=== PATIENT | female | born 1995 | race Caucasian/White ===

== ENCOUNTER 2019-06-19 22:18 | Emergency (ER) | payer OTHER, BC, MEDICAID ==
[2019-06-19 22:50] LABS: ANION GAP 15.5; CHLORIDE,CL 105 mmol/L (101-111); SODIUM,NA 141 mmol/L (135-145)
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
== END 2019-06-19 23:06 ==
LOC: DL.ED 22:18
DX: S72.352A Displaced comminuted fracture of shaft of left femur, initial encounter for closed fracture (principal); S01.21XA Laceration without foreign body of nose, initial encounter; S00.81XA Abrasion of other part of head, initial encounter; Z88.1 Allergy status to other antibiotic agents; Z79.899 Other long term (current) drug therapy; V49.49XA Driver injured in collision with other motor vehicles in traffic accident, initial encounter; Y92.410 Unspecified street and highway as the place of occurrence of the external cause
CPT/HCPCS: 36415; 71045; 72170; 73551; 80053; 85025; 85610; 85730; 86850; 86900; 86901; 99285; G0390; G0480

== ENCOUNTER 2021-05-02 15:51 | Emergency (ER) | payer BC ==
[2021-05-02 16:09] VITALS: BP 142/95; PULSE 81
[2021-05-02] MEDS ORDERED: methylPREDNISolone Sodium Succinate 125 MG/2 ML SDV IM ONE (16:15)
[2021-05-02] MEDS ORDERED: diphenhydrAMINE 50 MG Cap PO ONE (16:15)
[2021-05-02] MEDS ORDERED: Famotidine 20 MG Tab PO ONE (16:15)
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
== END 2021-05-02 17:46 | disposition home or self-care (01) ==
LOC: DL.ED 15:51
DX: T78.40XA Allergy, unspecified, initial encounter (principal); J45.909 Unspecified asthma, uncomplicated; Z88.0 Allergy status to penicillin
CPT/HCPCS: 96372; 99282; A9270; J2930; Q0163; 99283

== ENCOUNTER 2021-09-29 17:28 | Emergency (ER) | payer BC ==
[2021-09-29 17:52] VITALS: BP 112/78; PULSE 103
[2021-09-29 18:22] LABS: CORONAVIRUS COVID-19 NAA NEGATIVE (NEGATIVE)
--- NOTE | 2021-09-29 18:33 | EDM.PDOC ---
ED HPI GENERAL MEDICAL PROBLEM - General Chief Complaint: ENT Problem Stated Complaint: STREP THROAT, SORE THROAT, EARS, BODY ACHE Time Seen by Provider: 09/29/21 18:20 Source of Information: Reports: Patient History Limitations: Reports: No Limitations - History of Present Illness INITIAL COMMENTS - FREE TEXT/NARRATIVE: This 26 yo female reports to the ED with a sore throat, chills and body aches. The patient reports her symptoms started this morning and have been getting worse throughout the day. Onset: Today Duration: Constant, Getting Worse Location: Reports: Generalized Quality: Reports: Other Severity: Moderate Improves with: Reports: None Worsens with: Reports: None Context: Reports: Other Associated Symptoms: Reports: Fever/Chills, Other - Related Data Allergies Allergy/AdvReac Type Severity Reaction Status Date / Time amoxicillin [Amoxicillin] Allergy Rash Verified 09/29/21 17:50 Home Meds: Home Meds Citalopram [Citalopram HBr] 40 mg PO DAILY 05/02/21 [History] Clindamycin HCl 150 mg PO BID 05/02/21 [History] oxyCODONE 5 mg PO DAILY PRN 05/02/21 [History] Past Medical History - Past Health History Medical/Surgical History: Denies Medical/Surgical History Cardiovascular History: Reports: None Respiratory History: Reports: Asthma Gastrointestinal History: Reports: None Genitourinary History: Reports: None 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: Musculoskeletal History: Reports: None Neurological History: Reports: None Psychiatric History: Reports: ADHD, Anxiety, Depression Hematologic History: Reports: None Immunologic History: Reports: None Oncologic (Cancer) History: Reports: None Dermatologic History: Reports: None - Infectious Disease History Infectious Disease History: Reports: None - Past Surgical History Head Surgeries/Procedures: Reports: None HEENT Surgical History: Reports: Oral Surgery, Other (See Below) Other HEENT Surgeries/Procedures: REMOVAL OF CANINES Musculoskeletal Surgical History: Reports: ORIF, Other (See Below) Other Musculoskeletal Surgeries/Procedures:: Left femur fracture. Social & Family History - Family History Family Medical History: No Pertinent Family History - Tobacco Use Tobacco Use Status *Q: Never Tobacco User - Caffeine Use Caffeine Use: Reports: Coffee - Recreational Drug Use Recreational Drug Use: No - Living Situation & Occupation Living situation: Reports: with Family Occupation: Employed ED ROS ENT - Review of Systems Review Of Systems: Comprehensive ROS is negative, except as noted in HPI. ED EXAM, ENT - Physical Exam Exam: See Below Exam Limited By: No Limitations General Appearance: Alert, WD/WN, Mild Distress Eye Exam: Bilateral Eye: EOMI, Normal Inspection, PERRL Ears: Normal External Exam, Normal Canal, Hearing Grossly Normal, Normal TMs Nose: Normal Inspection, Normal Mucousa, No Blood Mouth/Throat: Normal Inspection, Normal Gums, Normal Lips, Normal Oropharynx, Normal Teeth Head: Atraumatic, Normocephalic Neck: Normal Inspection, Supple, Non-Tender, Full Range of Motion Respiratory/Chest: No Respiratory Distress, Lungs Clear, Normal Breath Sounds, No Accessory Muscle Use, Chest Non-Tender Cardiovascular: Normal Peripheral Pulses, Regular Rate, Rhythm, No Edema, No Gallop, No JVD, No Murmur, No Rub (Female) Exam: Deferred Rectal (Female) Exam: Deferred Back: Normal Inspection, Full Range of Motion Extremities: Normal Inspection, Normal Range of Motion, Non-Tender, No Pedal Edema, Normal Capillary Refill Neurological: Alert, Oriented, CN II-XII Intact, Normal Cognition, Normal Gait, Normal Reflexes, No Motor/Sensory Deficits Psychiatric: Normal Affect, Normal Mood Skin: Dry, Intact, Normal Color, No Rash, Increased Warmth Lymphatic: No Adenopathy Course - Vital Signs Last Recorded V/S: Last Vital Signs Temp 100.2 F 09/29/21 17:50 Pulse 103 H 09/29/21 17:50 Resp 16 09/29/21 17:50 BP 112/78 09/29/21 17:50 Pulse Ox 97 09/29/21 17:50 - Orders/Labs/Meds Orders: Active Orders 24 hr Category Date Time Status CULTURE STREP A CONFIRMATION [RM] Stat Lab 09/29/21 17:33 Results STREP SCRN A RAPID W CULT CONF [RM] Stat Lab 09/29/21 17:33 Results Labs: Laboratory Tests 09/29/21 Range/Units 17:33 Influenza Type A RNA Positive H (NEGATIVE) Influenza Type B RNA Negative (NEGATIVE) SARS-CoV-2 RNA ([place]) Negative (NEGATIVE) Departure - Departure Time of Disposition: 18:30 Disposition: Home, Self-Care 01 Condition: Fair Clinical Impression: Influenza A - Discharge Information *PRESCRIPTION DRUG MONITORING PROGRAM REVIEWED*: Not Applicable *COPY OF PRESCRIPTION DRUG MONITORING REPORT IN PATIENT BONNIE: Not Applicable Instructions: Influenza, Adult, [id number] Forms: ED Department Discharge Care Plan Goals: The patient was advised of the examination and lab results during the visit. The patient was discharged with a script for Tamiflu (75 mg) to take 1 by mouth 2 times per day for 5 days. The patient was encouraged to take over the counter medications for temporary symptom relief. If the patient has any additional symptoms or concerns, the patient should either return to the emergency department or visit her primary care facility. Sepsis Event Note (ED) - Evaluation Sepsis Screening Result: No Definite Risk - Focused Exam Vital Signs: Vital Signs Temp Pulse Resp BP Pulse Ox 09/29/21 17:50 100.2 F 103 H 16 112/78 97 - My Orders Last 24 Hours: My Active Orders 09/29/21 17:33 CULTURE STREP A CONFIRMATION [RM] Stat STREP SCRN A RAPID W CULT CONF [RM] Stat - Assessment/Plan Last 24 Hours: My Active Orders 09/29/21 17:33 CULTURE STREP A CONFIRMATION [RM] Stat STREP SCRN A RAPID W CULT CONF [RM] Stat
== END 2021-09-29 18:35 | disposition home or self-care (01) ==
LOC: DL.ED 17:28
DX: J10.1 Influenza due to other identified influenza virus with other respiratory manifestations (principal); Z88.0 Allergy status to penicillin; Z20.822 Contact with and (suspected) exposure to COVID-19
CPT/HCPCS: 0240U; 87081; 87430; 99283

== ENCOUNTER 2023-06-23 13:41 | Emergency (ER) | payer BC, MEDICAID ==
[2023-06-23 14:03] VITALS: BP 134/81; PULSE 94
[2023-06-23] MEDS ORDERED: Take Home: Azithromycin 250 MG, 2 Tab Pack PO ONE (14:30)
[2023-06-23] MEDS ORDERED: Azithromycin 250 MG Tab PO ONE (14:30)
== END 2023-06-23 14:44 | disposition home or self-care (01) ==
LOC: DL.ED 13:41
DX: J02.8 Acute pharyngitis due to other specified organisms (principal); Z88.1 Allergy status to other antibiotic agents; Z79.899 Other long term (current) drug therapy; Z20.822 Contact with and (suspected) exposure to COVID-19
CPT/HCPCS: 87081; 87430; 87635; 99283; A9270; U0002

== ENCOUNTER 2024-08-19 20:01 | Emergency (ER) | payer BC, MEDICAID ==
[2024-08-19 20:11] VITALS: BP 136/101; PULSE 71
== END 2024-08-19 20:24 | disposition home or self-care (01) ==
LOC: DL.ED 20:01
DX: S61.211A Laceration without foreign body of left index finger without damage to nail, initial encounter (principal); J45.909 Unspecified asthma, uncomplicated; Z79.899 Other long term (current) drug therapy; Z88.0 Allergy status to penicillin; W26.0XXA Contact with knife, initial encounter
CPT/HCPCS: 12001; 99282

== ENCOUNTER 2024-08-30 21:31 | Emergency (ER) | payer BC ==
[2024-08-30 21:43] VITALS: BP 138/120; PULSE 77
[2024-08-30] MEDS ORDERED: Sodium Chloride 0.9% 10 ML Syringe FLUSH PRN (22:04)
[2024-08-30 22:13] LABS: BASOPHILS PERCENT AUTO 0.2 % (0.0-1.0); EOSINOPHILS PERCENT AUTO 2.3 % (1.0-3.0); HEMOGLOBIN 13.6 g/dL (12.0-16.0); MEAN CORPUSCULAR HEMOGLOBIN 31.3 pg (27.0-34.0); MONOCYTES PERCENT AUTO 9.1 % (2-8); NEUTROPHILS PERCENT AUTO 48.4 % (42.2-75.2); PLATELET COUNT,PLT 256 10^3/uL (150-450); RED BLOOD CELL COUNT 4.35 10^6/uL (4.2-5.4)
[2024-08-30 22:26] LABS: ALANINE AMINOTRANSFERASE,ALT 16 U/L (14-59); ALBUMIN 3.4 g/dL (3.4-5.0); ALKALINE PHOSPHATASE 120 U/L (46-116); ANION GAP 14.9 mEq/L (7-13); ASPARTATE AMNIOTRANSFERASE,AST 19 U/L (15-37); BILIRUBIN TOTAL 0.5 mg/dL (0.2-1.0); BLOOD UREA NITROGEN,BUN 15 mg/dL (7-18); BUN/CREATININE RATIO 13.5 (No establ ref range); CALCIUM 9.1 mg/dL (8.5-10.1); CARBON DIOXIDE,CO2 27 mmol/L (21-32); CHLORIDE,CL 105 mmol/L (98-107); CREATININE 1.11 mg/dL (0.55-1.02); EST CRCL DRUG DOSING (CG) 59.68 mL/min; GLUCOSE RANDOM 122 mg/dL (70-99); LIPASE 60 U/L (16-77); MAGNESIUM 1.9 mg/dL (1.8-2.4); POTASSIUM,K 3.9 mmol/L (3.5-5.1); PROTEIN TOTAL,TP 6.9 g/dL (6.4-8.2); SODIUM,NA 143 mmol/L (136-145)
[2024-08-30 22:27] LABS: ESTIMATED GFR 69 mL/min (>=60); ETHANOL BLOOD MEDICAL < 3 mg/dL (0)
[2024-08-30 22:56] LABS: APPEARANCE,URINE SLIGHTLY CLOUDY (CLEAR); BILIRUBIN,URINE SMALL (NEGATIVE); COLOR,URINE DARK YELLOW (YELLOW); GLUCOSE,URINE NEGATIVE (NEGATIVE); KETONES,URINE NEGATIVE (NEGATIVE); LEUKOCYTE ESTERASE,URINE NEGATIVE (NEGATIVE); NITRITE,URINE NEGATIVE (NEGATIVE); OCCULT BLOOD,URINE NEGATIVE (NEGATIVE); PROTEIN,URINE 30 (NEGATIVE); UROBILINOGEN,URINE >=8.0 mg/dL (0.2-1.0)
[2024-08-30 23:01] LABS: AMPHETAMINES,URINE NEGATIVE (NEGATIVE); BARBITURATES,URINE NEGATIVE (NEGATIVE); BENZODIAZEPINE,URINE NEGATIVE (NEGATIVE); MDMA (ECSTASY), URINE NEGATIVE (NEGATIVE); METHADONE,URINE NEGATIVE (NEGATIVE); METHAMPHETAMINES,URINE NEGATIVE (NEGATIVE); OPIATES,URINE NEGATIVE (NEGATIVE); OXYCODONE,URINE NEGATIVE (NEGATIVE); PHENCYCLIDINE,URINE NEGATIVE (NEGATIVE); TCA,URINE NEGATIVE (NEGATIVE)
[2024-08-30 23:08] LABS: BACTERIA,URINE MODERATE /HPF (0-FEW/HPF); EPITHELIAL CELLS,URINE MANY /HPF (NOT SEEN); RBC,URINE 0-5 /HPF (0-5); WBC,URINE 0-5 /HPF (0-5/HPF)
[2024-08-30 23:09] LABS: AMORPHOUS SEDIMENT,URINE FEW /HPF (NOT SEEN)
== END 2024-08-30 23:39 | disposition home or self-care (01) ==
LOC: DL.ED 21:31
DX: R10.13 Epigastric pain (principal); Z98.84 Bariatric surgery status; J45.909 Unspecified asthma, uncomplicated; F17.210 Nicotine dependence, cigarettes, uncomplicated; Z88.0 Allergy status to penicillin; Z79.2 Long term (current) use of antibiotics; Z79.891 Long term (current) use of opiate analgesic; Z79.899 Other long term (current) drug therapy
CPT/HCPCS: 36415; 80053; 80305-QW; 80307; 81001; 83690; 83735; 85025; 99283; 99284